=== PATIENT | male | born 1985 | race Caucasian/White ===

== ENCOUNTER → 2017-01-19 | Outpatient (CLI) | payer OTHER ==
[~2017-01-19] MED LIST: METF500T4 PO; ONDA4TAB7 PO
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
== END ==
LOC: IMA 15:17
PROVIDERS: ATTEND Nurse Practitioner Family
DX: M79.601 Pain in right arm (principal)

== ENCOUNTER 2017-01-24 19:39 | Emergency (ER) | payer OTHER ==
[~2017-01-24] VITALS: Ht 180.3 cm; Wt 68.5 kg
[2017-01-24 19:46] VITALS: TEMP 98.5; Ht 180.3 cm; Wt 68.5 kg
[2017-01-24] MEDS ORDERED: NORMAL SALINE 1,000 ML IV ONE (20:00)
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
[2017-01-24] MEDS ORDERED: METF500T4 PO (20:05)
[2017-01-24] MEDS ORDERED: KETOROLAC 30mg/ml INJECTION IV ONE (20:15)
[2017-01-24] MEDS ORDERED: PROCHLORPERAZINE 10mg/2ml INJECTION IV ONE (20:15)
[2017-01-24 20:43] LABS: BLOOD, URINE NEGATIVE (NEGATIVE); COLOR,URINE YELLOW (YELLOW); LEUKOCYTE ESTERASE ,URINE NEGATIVE (NEGATIVE); NITRITE,URINE NEGATIVE (NEGATIVE); UROBILINOGEN,URINE 0.2 EU/DL (NORMAL)
[2017-01-24 20:45] LABS: HCT - HEMATOCRIT 43.3 % (41-53); HGB - HEMOGLOBIN 16.3 GM/DL (13.5-17.5); MEAN CORPUSCULAR HGB 29.7 UUG (26-34); MEAN CORPUSCULAR HGB CONC(MCHC 37.6 GM/DL (31-37); MEAN CORPUSCULAR VOLUME 78.9 UM3 (80-100); RED BLOOD COUNT 5.49 M/MM3 (4.50-5.90); WBC - WHITE BLOOD COUNT 9.1 T/MM3 (4.5-11.0)
[2017-01-24 20:52] LABS: ALBUMIN 4.3 G/DL (3.5-5.0); ALBUMIN/GLOBULIN RATIO 1.8 RATIO (1.1-2.2); ALKALINE PHOSPHATASE 67 U/L (38-126); ALT (SGPT) 37 U/L (21-72); ANION GAP 14 MEQ/L (5-15); AST (SGOT) 16 U/L (17-59); BUN/CREATININE RATIO 20 RATIO (6-26); CALCIUM 9.3 MG/DL (8.4-10.2); CHLORIDE 103 MEQ/L (98-107); CO2 - CARBON DIOXIDE 23 MEQ/L (22-30); CREATININE 0.5 MG/DL (0.8-1.5); GLOMERULAR FILTRATION RATE 192; GLUCOSE 372 MG/DL (75-110); LIPASE 174 U/L (23-300); POTASSIUM 3.8 MEQ/L (3.6-5); SODIUM 140 MEQ/L (134-144); TOTAL PROTEIN 6.7 G/DL (6.3-8.2)
[2017-01-24 21:32] LABS: EOSINOPHILS # (MANUAL) 0.5 T/MM3 (0-0.5); LYMPHOCYTES # (MANUAL) 2.5 T/MM3 (1-4.8); MONOCYTES # (MANUAL) 0.3 T/MM3 (0-0.8); NEUTROPHILS #(MANUAL)-ABSOLUTE 5.6 T/MM3 (1.8-7.7); REACTIVE LYMPHOCYTES # 0.2 T/MM3 (0-0); TOTAL CELLS COUNTED 100 %
--- NOTE | 2017-01-24 21:48 | NUR ---
BR PT AMBULATES TO BR AT THIS TIME.
[2017-01-24] MEDS ORDERED: ONDA4TAB7 PO (22:08)
[2017-01-24] MEDS ORDERED: ONDANSETRON ODT 4mg #3 (PrePack) SENT HOME ONE (22:15)
[2017-01-24 22:22] VITALS: BP 113/69; PULSE 72; RESP 12; O2SAT 99
--- NOTE | 2017-01-24 22:22 | NUR ---
DEPART PT IS DISCHARGED AT THIS TIME, INSTRUCTIONS ARE RVIEWED AND UNDERSTANDING IS VOICED. PT LEAVES AMBULATORY WITH FAMILY AT THIS TIME.
== END 2017-01-24 22:22 | disposition home or self-care (01) ==
LOC: ED 19:39
DX: A08.4 Viral intestinal infection, unspecified (principal); E11.9 Type 2 diabetes mellitus without complications
CPT/HCPCS: 80053; 81003; 82948; 83690; 85025; 96361; 96374; 96375; 99284; J0780; J1885; J7030